=== PATIENT | male | born 1980 | race Hispanic/Latino ===

== ENCOUNTER 2020-07-23 16:23 | Emergency (ER) | payer SELFPAY ==
[2020-07-23] MEDS ORDERED: MORPHINE 4 MG/ML SYR ONE (17:07)
[2020-07-23] MEDS ORDERED: ONDANSETRON 4 MG/2 ML VIAL ONE (17:07)
--- NOTE | 2020-07-23 17:51 | RAD REPORT ---
EXAM DESCRIPTION: CT - Knee Right W Cont - 07/23/2020 5:39 pm CLINICAL HISTORY: puncture wound to right knee Pain and swelling. COMPARISON: No comparisons FINDINGS: A large foreign body nail is present along the lateral aspect of the knee. The nail appear s true traverse through the lateral retinaculum likely involving the joint space. It abuts the patell a superolateral margin without fracture. No vascular compromise or injury suspected. IMPRESSION: No fracture or vascular injury suspected. The nail foreign body traverses the lateral retinaculum and likely penetrates the joint space. All CT scans are performed using dose optimization technique as appropriate and may include automated exposure control or mA/KV adjustment according to patient size.
[2020-07-23] MEDS ORDERED: LIDOCAINE 1% MPF 30 ML VIAL ONE ×2 (17:59→18:46)
[2020-07-23] MEDS ORDERED: FENTANYL CITR 100 MCG/2 ML ONE (18:07)
--- NOTE | 2020-07-23 18:21 | RAD REPORT ---
EXAM DESCRIPTION: RAD - Knee Right 3 View - 07/23/2020 5:55 pm CLINICAL HISTORY: nail gun to lateral right knee, eval if joint involvment COMPARISON: No comparisons FINDINGS: Nail foreign body is seen along the lateral soft tissues of the knee. No fracture apprecia shlomo.
[2020-07-23] MEDS ORDERED: CEFAZOLIN/SWI 1gm 2 GM/20 ML SYR ONE (18:30)
--- NOTE | 2020-07-23 18:54 | ER ---
Nurse's Notes [facility] Name: Jamshid Joshua Age: 40 yrs Sex: Male : 1980 Arrival Date: 07/23/2020 Time: 16:26 Bed 20 Private MD: Diagnosis: Puncture wound with foreign body, right knee Presentation: 07/23 16:30 Chief complaint: Patient states: Nail on R knee with a nail gun. Coronavirus screen: ca1 Client denies travel out of the [place] in the last 14 days. At this time, the client does not indicate any symptoms associated with coronavirus-19. Ebola Screen: Patient negative for fever greater than or equal to 101.5 degrees Fahrenheit, and additional compatible Ebola Virus Disease symptoms Patient denies exposure to infectious person. Patient denies travel to an Ebola-affected area in the 21 days before illness onset. No symptoms or risks identified at this time. Initial Sepsis Screen: Does the patient meet any 2 criteria? No. Patient's initial sepsis screen is negative. Does the patient have a suspected source of infection? No. Patient's initial sepsis screen is negative. Risk Assessment: Do you want to hurt yourself or someone else? Patient reports no desire to harm self or others. Onset of symptoms was July 23, 2020. 16:30 Method Of Arrival: Wheelchair ca1 16:30 Acuity: SONIYA 4 ca1 Historical: - Allergies: 16:39 No Known Allergies; ca1 - Immunization history:: Adult Immunizations up to date, Last tetanus immunization: up to date < 5 years ago. - Social history:: Smoking status: Patient reports the use of cigarette tobacco products, denies chronic smoking, but will smoke occasionally. - Family history:: not pertinent. - Hospitalizations: : No recent hospitalization is reported. Screenin:45 Abuse screen: Denies threats or abuse. Denies injuries from another. Nutritional jl7 screening: No deficits noted. Tuberculosis screening: No symptoms or risk factors identified. Fall Risk IV access ([address] Fall Scale indicates No Risk (0-24 pts). Assessment: 16:45 General: Appears in no apparent distress. uncomfortable, Behavior is calm, cooperative, jl7 appropriate for age. Pain: Complains of pain in right knee. Neuro: Level of Consciousness is awake, alert, obeys commands, Oriented to person, place, time, situation. Cardiovascular: Patient's skin is warm and dry. Respiratory: Airway is patent Respiratory effort is even, unlabored, Respiratory pattern is regular, symmetrical. Musculoskeletal: Range of motion: intact in all extremities. 18:51 Reassessment: Dr. Pat at bedside. jl7 Vital Signs: 16:30 BP 146 / 86; Pulse 73; Resp 17 S; Temp 98(TE); Pulse Ox 98% on R/A; Weight 81.65 kg ca1 (R); Height 5 ft. 2 in. (160 cm) (R); 18:51 BP 112 / 65; Pulse 83; Resp 17; Pulse Ox 96% ; jl7 16:30 Body Mass Index 31.89 (81.65 kg, 160 cm) ca1 ED Course: 16:26 Patient arrived in ED. as 16:32 Celestine Nunez PA is PHCP. cp 16:32 Homero López MD is Attending Physician. cp 16:39 Triage completed. ca1 16:39 Arm band placed on right wrist. ca1 16:45 Patient has correct armband on for positive identification. Bed in low position. Call jl7 light in reach. Side rails up X 1. Pulse ox on. NIBP on. 16:48 Luis Miguel Diaz, WILL is Primary Nurse. jl7 16:59 Inserted saline lock: 20 gauge in right forearm, using aseptic technique. jl7 17:39 Knee Right W Cont In Process Unspecified. EDMS 17:55 XRAY Knee RIGHT 3 view In Process Unspecified. EDMS 18:10 Assist provider with foreign body removal of Nail from right knee using hands Set up jl7 for procedure. Performed by Homero López MD Dressed with gauze bandage, Patient tolerated well. 18:53 Deni Pat MD is Referral Physician. rn 19:07 IV discontinued, intact, bleeding controlled, No redness/swelling at site. Pressure jl7 dressing applied. Administered Medications: 16:56 Drug: Zofran (Ondansetron) 4 mg Route: IVP; Site: right forearm; jl7 17:43 Follow up: Response: No adverse reaction jl7 16:58 Drug: morphine 4 mg Route: IVP; Site: right forearm; jl7 17:15 Follow up: Response: No adverse reaction; Pain is decreased jl7 17:55 Drug: Lidocaine (1 %) 1 vials {Note: administered by Dr. López.} Volume: 20 ml; Route: jl7 Infiltration; 18:11 Follow up: Response: No adverse reaction jl7 17:55 Drug: fentaNYL (PF) 75 mcg Route: IVP; Site: right forearm; jl7 18:11 Follow up: Response: No adverse reaction; Pain is decreased jl7 18:19 Drug: Ancef 2 grams {Note: administered per pharmacy instructions.} Route: IVPB; jl7 Infused Over: 30 mins; Site: right forearm; 18:24 Follow up: Response: No adverse reaction; IV Status: Completed infusion jl7 Outcome: 18:53 Discharge ordered by . rn 19:05 Discharged to home ambulatory. jl7 19:05 Condition: stable 19:05 Discharge instructions given to patient, family, Instructed on discharge instructions, follow up and referral plans. medication usage, Demonstrated understanding of instructions, follow-up care, medications, Prescriptions given X 2. 19:08 Patient left the ED. 7 Signatures: Dispatcher [employer] EDSoumya Cotto Roman, MD MD rn Page, Corey, PA PA cp Leal, Jahala, RN RN jl7 Saba Flores RN RN ca1 Corrections: (The following items were deleted from the chart) 17:43 17:43 Response: No adverse reaction; Pain is decreased jl7 jl7
--- NOTE | 2020-07-23 18:54 | EDPHYS ---
Physician Documentation [facility] Name: Jamshid Joshua Age: 40 yrs Sex: Male : 1980 Arrival Date: 07/23/2020 Time: 16:26 Bed 20 Private MD: ED Physician Homero López HPI: 07/23 16:43 This 40 yrs old Male presents to ER via Wheelchair with complaints of Leg rn Injury, Puncture Wound To Leg - nail. 16:43 The patient presents with an injury, a puncture wound. The complaints affect the right rn knee. Onset: The symptoms/episode began/occurred just prior to arrival. Modifying factors: The symptoms are alleviated by nothing. the symptoms are aggravated by bending knee. Severity of symptoms: At their worst the symptoms were mild, in the emergency department the symptoms are unchanged. The patient has not experienced similar symptoms in the past. . 16:49 Accidentally shot his right knee with framing nail, using framing nail gun. Reports rn pain to right knee when bending but otherwise feels ok. . Historical: - Allergies: 16:39 No Known Allergies; ca1 - Immunization history:: Adult Immunizations up to date, Last tetanus immunization: up to date < 5 years ago. - Social history:: Smoking status: Patient reports the use of cigarette tobacco products, denies chronic smoking, but will smoke occasionally. - Family history:: not pertinent. - Hospitalizations: : No recent hospitalization is reported. ROS: 16:49 Constitutional: Negative for fever, chills, and weight loss, MS/Extremity: + puncture rn imaging to right knee Neuro: Negative for weakness, numbness, tingling Exam: 16:49 Constitutional: This is a well developed, well nourished patient who is awake, alert, rn and in no acute distress. MS/ Extremity: Pulses equal, no cyanosis. Framing nail lateral to right knee, subcutaneous, exit seems anterior and lateral to patella Vital Signs: 16:30 BP 146 / 86; Pulse 73; Resp 17 S; Temp 98(TE); Pulse Ox 98% on R/A; Weight 81.65 kg ca1 (R); Height 5 ft. 2 in. (160 cm) (R); 18:51 BP 112 / 65; Pulse 83; Resp 17; Pulse Ox 96% ; jl7 16:30 Body Mass Index 31.89 (81.65 kg, 160 cm) ca1 Procedures: 18:02 Foreign Body Removal: a nail, from the right right knee (external and subcutaneous), by rn hand. Dressinx4s were used to dress the wound, The patient tolerated the removal well, wound cleansed. MDM: 16:39 Patient medically screened. rn 18:02 Differential diagnosis: puncture wound, intraarticular puncture wound/foreign body, rn extraarticular foreign body. Data reviewed: vital signs, nurses notes, radiologic studies, CT scan, plain films. Test interpretation: by ED physician or midlevel provider: plain radiologic studies, + foreign body nail lateral and superior to right knee joint, no fracture, does not traverse knee joint proper. Counseling: I had a detailed discussion with the patient and/or guardian regarding: the historical points, exam findings, and any diagnostic results supporting the discharge/admit diagnosis, radiology results, the need for outpatient follow up, to return to the emergency department if symptoms worsen or persist or if there are any questions or concerns that arise at home. Response to treatment: the patient's symptoms have resolved after treatment, After removal of intact nail, patient with full active and passive ROM right knee, no bony tenderness, and as a result, I will discharge patient. 18:14 ED course: CT shows could possibly involve joint space, called Dr. Pat twice, no rn answer, voicemail left. . 18:30 ED course: Consulted with Dr. Pat, is going to come to ER, inject saline in knee rn joint to see if open, setup procedure. . 18:44 ED course: Dr. Pat injected 120cc NS into knee to look for extrusion of fluid rn through wound, no saline came out of wound, tolerated well, removed some of the fluid for comfort, states can dc home with abx. . 07/23 16:39 Order name: XRAY Knee RIGHT 3 view; Complete Time: 18:23 rn 07/23 16:50 Order name: Knee Right W Cont; Complete Time: 18:11 EDMS 07/23 16:44 Order name: IV Start; Complete Time: 16:59 rn 07/23 18:18 Order name: NPO; Complete Time: 18:37 rn Administered Medications: 16:56 Drug: Zofran (Ondansetron) 4 mg Route: IVP; Site: right forearm; jl7 17:43 Follow up: Response: No adverse reaction jl7 16:58 Drug: morphine 4 mg Route: IVP; Site: right forearm; jl7 17:15 Follow up: Response: No adverse reaction; Pain is decreased jl7 17:55 Drug: Lidocaine (1 %) 1 vials {Note: administered by Dr. López.} Volume: 20 ml; Route: jl7 Infiltration; 18:11 Follow up: Response: No adverse reaction jl7 17:55 Drug: fentaNYL (PF) 75 mcg Route: IVP; Site: right forearm; jl7 18:11 Follow up: Response: No adverse reaction; Pain is decreased jl7 18:19 Drug: Ancef 2 grams {Note: administered per pharmacy instructions.} Route: IVPB; jl7 Infused Over: 30 mins; Site: right forearm; 18:24 Follow up: Response: No adverse reaction; IV Status: Completed infusion jl7 Disposition: 07/23/20 18:53 Discharged to Home. Impression: Puncture wound with foreign body, right knee. - Condition is Stable. - Discharge Instructions: Puncture Wound. - Prescriptions for Clindamycin HCl 300 mg Oral Capsule - take 1 capsule by ORAL route every 6 hours for 10 days; 40 capsule. Tylenol- Codeine #3 300-30 mg Oral Tablet - take 2 tablets by ORAL route every 6 hours As needed; 20 tablet. - Medication Reconciliation Form, Thank You Letter, Antibiotic Education, Prescription Opioid Use form. - Follow up: Deni Pat; When: 5 - 6 days; Reason: Recheck today's complaints, Re-evaluation by your physician. - Problem is new. - Symptoms have improved. Signatures: Dispatcher [employer] EDMS Homero López MD MD rn Leal, Jahala, RN RN jl7 Saba Flores RN RN ca1 Corrections: (The following items were deleted from the chart) 19:08 18:53 07/23/2020 18:53 Discharged to Home. Impression: Puncture wound with foreign jl7 body, right knee. Condition is Stable. Discharge Instructions: Puncture Wound. Prescriptions for Clindamycin HCl 300 mg Oral Capsule - take 1 capsule by ORAL route every 6 hours for 10 days; 40 capsule. and Forms are Medication Reconciliation Form, Thank You Letter, Antibiotic Education, Prescription Opioid Use. Follow up: Deni Pat; When: 5 - 6 days; Reason: Recheck today's complaints, Re-evaluation by your physician. Problem is new. Symptoms have improved. rn
[2020-07-23] MEDS ORDERED: HYDROCODONE/APAP 10/325 TAB ONE (19:10)
[2020-07-23 19:17] VITALS: TEMP 98
[2020-07-23 19:18] VITALS: BP 112/65; O2SAT 96
--- NOTE | 2020-07-24 03:49 | CON ---
Date of Consultation: 07/23/2020 History Of Present Illness: This is my first time seeing this patient to my knowledge. He is a 40-y ear-old male who apparently was injured with a nail gun today. He was seen and examined in the emerg ency department where he was ruled out for other injuries and the nail was removed by the emergency r oom physician who felt that it was very superficial and could not have injured the knee joint. On vi sualization of the x-rays, it appears that he could have injured the knee joint and a CT scan was don e which showed that there may be some injury to the lateral parapatellar retinaculum. However, there is no effusion and the ER physician feels that it is very superficial, perhaps even just under the s kin and was very easily mobile when it was there. Given this information, decision was made to proce ed with placement of 120 cc of sterile saline in the suprapatellar pouch using sterile technique. Af ter this, the knee was brought through a range of motion and there was found to be no extravasation o f fluid either directly under the skin or out of the hole from the nail gun. Decision made to treat this nonoperatively with antibiotics, tetanus, and the patient was made aware of the possibility to d evelop an infection. This is an emergent process. This was done with the help of a marketing producer. All their questions are answered. MEGHAN Voice ID: [id number] Report ID: [id number]
== END 2020-07-23 19:08 | disposition home or self-care (01) ==
LOC: ER 16:23
DX: S81.041A Puncture wound with foreign body, right knee, initial encounter (principal); W45.0XXA Nail entering through skin, initial encounter; W29.4XXA Contact with nail gun, initial encounter; Y93.89 Activity, other specified; Y92.9 Unspecified place or not applicable; F17.210 Nicotine dependence, cigarettes, uncomplicated
CPT/HCPCS: 73700; 96374; 96375; 99284; J0690; J2405; J3010; Q9967